=== PATIENT | male | born 1955 | race Caucasian/White ===

== ENCOUNTER → 2019-08-17 12:10 | Outpatient (BNVA) | payer MEDICARE, SELFPAY | PROVIDERS: Family Provider Family Medicine; PCP Family Medicine; Visit Provider Family Medicine | DX: Z00.00 Encounter for general adult medical examination without abnormal findings (principal); E11.9 Type 2 diabetes mellitus without complications | CPT/HCPCS: 80053; 80061; 82044; 83036; 85007; 85027 ==

== ENCOUNTER → 2020-06-27 11:38 | Outpatient (BNVA) | payer MEDICARE, SELFPAY | PROVIDERS: Family Provider Family Medicine; PCP Family Medicine; Visit Provider Family Medicine | DX: I10 Essential (primary) hypertension (principal); E11.42 Type 2 diabetes mellitus with diabetic polyneuropathy; E78.5 Hyperlipidemia, unspecified; E55.9 Vitamin D deficiency, unspecified; N43.3 Hydrocele, unspecified | CPT/HCPCS: 80053; 80061; 81003; 82043; 83036; 85007; 85027 ==

== ENCOUNTER → 2021-11-11 13:31 | Outpatient (BNVA) | payer MEDICARE, SELFPAY | PROVIDERS: Family Provider Family Medicine; PCP Family Medicine; Visit Provider Nurse Practitioner | DX: E11.9 Type 2 diabetes mellitus without complications (principal); N40.0 Benign prostatic hyperplasia without lower urinary tract symptoms; R53.83 Other fatigue | CPT/HCPCS: 80053; 80061; 82043; 83036; 84550; 85025; G0103 ==

== ENCOUNTER → 2022-07-19 08:33 | Outpatient (BNVA) | payer MEDICARE, SELFPAY | PROVIDERS: Family Provider Family Medicine; PCP Family Medicine; Visit Provider Family Medicine | DX: E78.5 Hyperlipidemia, unspecified (principal); I10 Essential (primary) hypertension; E11.9 Type 2 diabetes mellitus without complications | CPT/HCPCS: 80053; 80061; 83036; 84443; 85025 ==

== ENCOUNTER → 2023-03-09 15:41 | Outpatient (BNVA) | payer MEDICARE, SELFPAY | PROVIDERS: Family Provider Family Medicine; PCP Family Medicine; Visit Provider Nurse Practitioner Family | DX: E11.9 Type 2 diabetes mellitus without complications (principal) | CPT/HCPCS: 83036 ==

== ENCOUNTER → 2023-04-28 09:30 | Outpatient (BNVA) | payer MEDICARE, SELFPAY | PROVIDERS: Family Provider Family Medicine; PCP Family Medicine; Visit Provider Nurse Practitioner Family | DX: E11.40 Type 2 diabetes mellitus with diabetic neuropathy, unspecified (principal); N40.0 Benign prostatic hyperplasia without lower urinary tract symptoms; Z12.5 Encounter for screening for malignant neoplasm of prostate; E78.5 Hyperlipidemia, unspecified; I10 Essential (primary) hypertension; I25.10 Atherosclerotic heart disease of native coronary artery without angina pectoris | CPT/HCPCS: 80053; 81000; 83036; 85025; G0103 ==

== ENCOUNTER → 2023-04-29 09:20 | Outpatient (BNVA) | payer MEDICARE, SELFPAY | PROVIDERS: Family Provider Family Medicine; PCP Family Medicine; Visit Provider Podiatrist Foot & Ankle Surgery | DX: B35.1 Tinea unguium (principal); B35.3 Tinea pedis; E11.42 Type 2 diabetes mellitus with diabetic polyneuropathy; M20.41 Other hammer toe(s) (acquired), right foot; M20.42 Other hammer toe(s) (acquired), left foot; I73.9 Peripheral vascular disease, unspecified; L84 Corns and callosities; M21.612 Bunion of left foot; M21.611 Bunion of right foot; M21.6X2 Other acquired deformities of left foot; M21.6X1 Other acquired deformities of right foot; Z79.84 Long term (current) use of oral hypoglycemic drugs | CPT/HCPCS: 11721; 99213 ==

== ENCOUNTER → 2023-12-27 08:39 | Outpatient (BNVA) | payer MEDICARE, SELFPAY | PROVIDERS: Family Provider Family Medicine; PCP Nurse Practitioner Family; Visit Provider Nurse Practitioner Family | DX: E11.9 Type 2 diabetes mellitus without complications (principal) | CPT/HCPCS: 80053; 83036; 85025 ==

== ENCOUNTER → 2024-05-21 08:41 | Outpatient (BNVA) | payer MEDICARE, SELFPAY | PROVIDERS: Family Provider Family Medicine; PCP Nurse Practitioner Family; Visit Provider Nurse Practitioner Family | DX: Z12.5 Encounter for screening for malignant neoplasm of prostate (principal); I10 Essential (primary) hypertension; E78.5 Hyperlipidemia, unspecified; E55.9 Vitamin D deficiency, unspecified; R60.0 Localized edema; E11.40 Type 2 diabetes mellitus with diabetic neuropathy, unspecified | CPT/HCPCS: 80053; 80061; 81003; 82306; 83036; 84443; 85025; G0103 ==

== ENCOUNTER → 2024-10-08 11:18 | Outpatient (BNVA) | payer MEDICARE, SELFPAY | PROVIDERS: Family Provider Family Medicine; PCP Nurse Practitioner Family; Visit Provider Nurse Practitioner Family | DX: E11.9 Type 2 diabetes mellitus without complications (principal); E11.40 Type 2 diabetes mellitus with diabetic neuropathy, unspecified | CPT/HCPCS: 80053; 83036; 85025 ==

== ENCOUNTER 2024-10-18 15:58 | Outpatient (CLI) | payer MEDICARE, SELFPAY ==
--- NOTE | 2024-10-18 16:06 | XRR_ITS ---
PROCEDURE INFORMATION: Exam: XR Bilateral Hips Exam date and time: 10/18/2024 4:14 PM Age: 69 years old Clinical indication: Hip pain; Bilateral; Additional info: M25.552 - pain in left hip TECHNIQUE: Imaging protocol: Radiologic exam of the bilateral hips. Views: 2 views of hips with pelvis when performed. COMPARISON: CR XR lumbar spine 2-3V* [id number] 10/18/2024 4:14 PM FINDINGS: Bones/joints: Mild degenerative changes involve the bilateral hips and sacroiliac joints. No acute fracture. Soft tissues: Unremarkable. XR/XR hip BI m 5V wo/w pel* [id number] IMPRESSION: No acute findings. Mild degenerative changes
--- NOTE | 2024-10-18 16:06 | XRR_ITS ---
PROCEDURE INFORMATION: Exam: XR Lumbosacral Spine Exam date and time: 10/18/2024 4:14 PM Age: 69 years old Clinical indication: Pain; Lumbago with sciatica; Right; Additional info: M54.41 - lumbago with sciatica, right side TECHNIQUE: Imaging protocol: Radiologic exam of the lumbosacral spine. Views: 2 or 3 views. COMPARISON: CR XR hip BI m 5V wo/w pel* [id number] 10/18/2024 4:14 PM FINDINGS: Bones/joints: There is normal alignment of the lumbar spine without fracture or acute subluxation. Extensive facet arthropathy present. Anterior and marginal osteophyte formation present throughout the lumbar spine. There is grade 1 anterolisthesis of L3 in respect to L4 secondary to facet arthropathy Soft tissues: Unremarkable. XR/XR lumbar spine 2-3V* [id number] IMPRESSION: No acute bony abnormality. Multilevel degenerative changes.
== END 2024-10-18 15:59 | disposition home or self-care (01) ==
LOC: RAD 16:03
PROVIDERS: Absent Provider Family Medicine; PCP Nurse Practitioner Family; Visit Provider Nurse Practitioner Family
DX: M16.0 Bilateral primary osteoarthritis of hip (principal); M54.41 Lumbago with sciatica, right side; M54.42 Lumbago with sciatica, left side; G89.29 Other chronic pain; M47.896 Other spondylosis, lumbar region; M25.78 Osteophyte, vertebrae; M43.16 Spondylolisthesis, lumbar region; M46.1 Sacroiliitis, not elsewhere classified
CPT/HCPCS: 72100; 73523

== ENCOUNTER 2024-11-06 16:46 | Outpatient (CLI) | payer MEDICARE, SELFPAY ==
--- NOTE | 2024-11-06 16:45 | MR_ITS ---
WS: [id number] MRI LUMBAR SPINE NONCONTRAST TECHNIQUE: Sagittal T1, T2 and STIR imaging. Axial T1 and T2 imaging. CLINICAL INFORMATION: M54.30 - Sciatica, unspecified side COMPARISON: None. FINDINGS: Mild lumbar curve. Disc bulging worse at L1-2 L3-4 L4-5. Slight anterolisthesis L3 on L4 with chronic spondylolysis. LEFT synovial cyst L2-3 measuring 6 mm impinges the LEFT subarticular recess. L1-L2: Mild disc bulging with moderate central canal stenosis. Narrowing of the subarticular recess. Moderate facet arthropathy. Mild bilateral foraminal narrowing. L2-L3: Mild disc bulge with moderate central canal stenosis. LEFT synovial cyst contributes to significant impingement on the LEFT subarticular recess. Moderate facet arthropathy. Mild LEFT foraminal narrowing. L3-L4: Chronic spondylolysis with grade 1 anterolisthesis. Severe LEFT foraminal narrowing. Significant impingement on the exiting LEFT L3 nerve root. Mild RIGHT foraminal narrowing. Mild central canal stenosis. Impingement on the subarticular recess. Moderate facet arthropathy. L4-L5: Severe central canal stenosis due to disc bulging with facet arthropathy and ligamentum flavum hypertrophy. Severe impingement on the subarticular recess and traversing L5 nerve roots. Moderate facet arthropathy ligamentum flavum hypertrophy. Moderate to severe RIGHT and mild LEFT foraminal narrowing. L5-S1: Mild annular bulging. Tiny central protrusion. Slight contact of the S1 nerve roots RIGHT greater than LEFT. Mild RIGHT foraminal narrowing. Visualized pelvic bony structures: Normal. Paravertebral soft tissues: Normal. Tiny central protrusions in the cervical spine on examiner rating clerk imaging with mild central canal stenosis worse at C3-4. MR/MR lumbar spine wo con* [id number] IMPRESSION: 1. Severe central canal stenosis L4-5. 2. Moderate to severe foraminal narrowing LEFT L3-4 and RIGHT L4-5. 3. Moderate central canal stenosis L1-2 and L2-3. 4. Chronic spondylolysis L3-4 with grade 1 anterolisthesis 5. LEFT synovial cyst L2-3 measuring 6 mm impinges the LEFT subarticular rece ss.
== END 2024-11-06 16:47 | disposition home or self-care (01) ==
LOC: RAD 16:48
PROVIDERS: PCP Nurse Practitioner Family; Visit Provider Nurse Practitioner Family
DX: M54.41 Lumbago with sciatica, right side (principal); M54.42 Lumbago with sciatica, left side; M16.12 Unilateral primary osteoarthritis, left hip; G89.29 Other chronic pain; M48.061 Spinal stenosis, lumbar region without neurogenic claudication; M47.896 Other spondylosis, lumbar region; M71.38 Other bursal cyst, other site; R93.7 Abnormal findings on diagnostic imaging of other parts of musculoskeletal system; M43.8X6 Other specified deforming dorsopathies, lumbar region; M51.369 Other intervertebral disc degeneration, lumbar region without mention of lumbar back pain or lower extremity pain; M43.06 Spondylolysis, lumbar region; M89.38 Hypertrophy of bone, other site; M51.379 Other intervertebral disc degeneration, lumbosacral region without mention of lumbar back pain or lower extremity pain
CPT/HCPCS: 72148

== ENCOUNTER 2024-12-19 10:17 | Outpatient (CLI) | payer MEDICARE, SELFPAY ==
--- NOTE | 2024-12-19 10:30 | USR_ITS ---
PROCEDURE INFORMATION: Exam: US Bilateral Noninvasive Physiologic Study of the Lower Extremity Arteries, Limited Exam date and time: 12/19/2024 10:29 AM Age: 69 years old Clinical indication: Pain; Leg, lower; Bilateral; Additional info: I73.9 - peripheral vascular disease, unspecified TECHNIQUE: Imaging protocol: Bilateral Limited bilateral noninvasive physiologic studies of lower extremity arteries. Waveforms were obtained and evaluated. Images were documented and archived. Exam is limited. COMPARISON: No relevant prior studies available. FINDINGS: Right Ankle-Brachial Index: 1.1 Left Ankle-Brachial Index: 1.1 US/CV ankle brachial index [id number] IMPRESSION: No evidence of stenosis or occlusion in the lower extremity.
== END 2024-12-19 10:18 | disposition home or self-care (01) ==
PROVIDERS: PCP Nurse Practitioner Family; Visit Provider Family Medicine
DX: I73.9 Peripheral vascular disease, unspecified (principal)
CPT/HCPCS: 93922

== ENCOUNTER → 2024-12-25 13:55 | Outpatient (BNVA) | payer MEDICARE, SELFPAY | PROVIDERS: PCP Nurse Practitioner Family; Visit Provider Orthopaedic Surgery | DX: M54.41 Lumbago with sciatica, right side (principal); M54.42 Lumbago with sciatica, left side; G89.29 Other chronic pain | CPT/HCPCS: 72110; 99203 ==

== ENCOUNTER → 2025-01-04 11:16 | Outpatient (BNVA) | payer MEDICARE, SELFPAY | PROVIDERS: PCP Family Medicine; Referring Provider Orthopaedic Surgery; Visit Provider Nurse Practitioner Family | DX: M54.16 Radiculopathy, lumbar region (principal); G89.29 Other chronic pain; M47.816 Spondylosis without myelopathy or radiculopathy, lumbar region | CPT/HCPCS: 99214 ==

== ENCOUNTER 2025-01-06 05:00 | Outpatient (RCR) | payer MEDICARE, SELFPAY | END 2025-02-04 23:59 | disposition home or self-care (01) | LOC: WPT 05:00 | PROVIDERS: PCP Family Medicine; Visit Provider Orthopaedic Surgery | DX: M79.18 Myalgia, other site (principal); M54.16 Radiculopathy, lumbar region; G89.29 Other chronic pain; M47.816 Spondylosis without myelopathy or radiculopathy, lumbar region | CPT/HCPCS: 20553; 97110; 97112; 97161; 97530; 99214; J1010; J3490 ==

== ENCOUNTER → 2025-01-22 14:32 | Outpatient (BNVA) | payer MEDICARE, SELFPAY | PROVIDERS: PCP Family Medicine; Visit Provider Nurse Practitioner Family | DX: M54.16 Radiculopathy, lumbar region (principal); G89.29 Other chronic pain; M47.816 Spondylosis without myelopathy or radiculopathy, lumbar region | CPT/HCPCS: 99214 ==

== ENCOUNTER 2025-02-05 05:00 | Outpatient (RCR) | payer MEDICARE, SELFPAY | END 2025-03-07 23:59 | disposition home or self-care (01) | LOC: WPT 05:00 | PROVIDERS: PCP Family Medicine; Visit Provider Orthopaedic Surgery | DX: M54.50 Low back pain, unspecified (principal); M79.18 Myalgia, other site; G89.29 Other chronic pain; M54.16 Radiculopathy, lumbar region; M47.816 Spondylosis without myelopathy or radiculopathy, lumbar region | CPT/HCPCS: 97110; 97112; 97530 ==

== ENCOUNTER → 2025-02-20 14:24 | Outpatient (BNVA) | payer MEDICARE, SELFPAY | PROVIDERS: PCP Family Medicine; Visit Provider Nurse Practitioner Family | DX: M54.16 Radiculopathy, lumbar region (principal); M47.816 Spondylosis without myelopathy or radiculopathy, lumbar region; G89.29 Other chronic pain | CPT/HCPCS: 99214 ==

== ENCOUNTER → 2025-05-14 13:46 | Outpatient (BNVA) | payer MEDICARE, SELFPAY | PROVIDERS: PCP Family Medicine; Visit Provider Family Medicine | DX: I25.10 Atherosclerotic heart disease of native coronary artery without angina pectoris (principal); E11.40 Type 2 diabetes mellitus with diabetic neuropathy, unspecified; I10 Essential (primary) hypertension | CPT/HCPCS: 83036; 85025 ==

== ENCOUNTER 2025-06-14 19:29 | Emergency (ER) | payer MEDICARE, SELFPAY ==
[2025-06-14 19:32] VITALS: BP 105/62; PULSE 69; RESP 18; TEMP 36.7; O2SAT 99
--- NOTE | 2025-06-14 19:41 | ECG_ITS ---
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 Measurements Intervals [place] Rate: 67 P: 35 UT: 181 QRS: -8 QRSD: 94 T: 29 QT: 381 QTc: 402 Interpretive Statements SINUS RHYTHM POSSIBLE ANTERIOR MYOCARDIAL INFARCTION , PROBABLY OLD [30 ms Q WAVE IN V3/V4, OR R < 0.2 mV IN V4] INFERIOR MYOCARDIAL INFARCTION , PROBABLY OLD [40+ ms Q WAVE AND/OR ST/T ABNORMALITY IN II/aVF] Compared to ECG 05/20/2017 14:46:31 Sinus bradycardia no longer present Myocardial infarct finding still present Electronically Signed On 06-15-2025 08:30:51 PHOTOGRAPH PRINTER by Pravin Greenberg M.D. [id number]
--- NOTE | 2025-06-14 20:54 | XRR_ITS ---
PROCEDURE INFORMATION: Exam: XR Chest Exam date and time: 06/14/2025 9:12 PM Age: 70 years old Clinical indication: Shortness of breath; Prior surgery; Surgery date: 6+ months; Surgery type: Coronary stents; C/O SOB TECHNIQUE: Imaging protocol: Radiologic exam of the chest. Views: 1 view. COMPARISON: l spine FINDINGS: Lungs: Patchy density in the retrocardiac region indicating left lower lobe atelectasis versus early infection. Multiple calcified granulomas in the left lung. Pleural spaces: Small left pleural effusion. Heart/Mediastinum: There is no cardiomegaly. Bones/joints: No acute osseous abnormality. Intraperitoneal space: There is no free intraperitoneal gas. XR/XR chest 1V portable [id number] IMPRESSION: No acute findings.
[2025-06-14 21:15] LABS: Hematocrit 39.7 % (37-53); Hemoglobin 13.30 g/dL (11.27-16.99); Mean Corpuscular HGB Conc 33.5 g/dL (30-55); Mean Corpuscular Hemoglobin 29.2 pg (27-33); Mean Corpuscular Volume 87.1 fl (82-101); Nucleated Red Blood Cells % 0 %; Platelet Count 175 10^3/cmm (157-399); Red Blood Count 4.56 10^6/uL (3.85-5.65); White Blood Count 10.18 10^3/uL (3.29-11.43)
[2025-06-14 21:37] LABS: Alanine Aminotransferase 130 U/L (0-41); Albumin Level 3.2 g/dL (3.5-5.2); Alkaline Phosphatase 167 U/L (40-130); Anion Gap 16.5 (5-19); Aspartate Amino Transferase 99 U/L (0-40); Blood Urea Nitrogen 33 mg/dL (8-23); Calcium 9.6 mg/dL (8.5-10.5); Carbon Dioxide 26 mmol/L (22-29); Chloride 97 mmol/L (98-107); Creatinine Clr Calc Pharmacy 55.0641; Globulin 3.5 g/dL (1.3-4.6); Glucose 207 mg/dL (65-115); Osmolality Calculated 295 mOsm/kg (285-295); Potassium 3.5 mmol/L (3.5-5.1); Sodium 136 mmol/L (136-145); Total Protein 6.7 g/dL (6.6-8.7)
[2025-06-14 21:40] LABS: Troponin(5th) Baseline 49 ng/L (0-15)
[2025-06-14 21:47] VITALS: BP 136/69; PULSE 66; O2SAT 92
--- NOTE | 2025-06-14 21:51 | CTR_ITS ---
PROCEDURE INFORMATION: Exam: CTA Chest With Contrast Exam date and time: 06/14/2025 10:58 PM Age: 70 years old Clinical indication: Pain and abnormal findings; Abnormal diagnostic tests; Elevated d-dimer; Left-sided; Prior surgery; Surgery date: 6+ months; Surgery type: Coronary stents; Patient C/O left sided chest pain. Dimer of 6.19. Patient one week post op from lumbar surgery. ; Additional info: Elevated dimer, cp TECHNIQUE: Imaging protocol: Computed tomographic angiography of the chest with contrast. Exam focused on the arteries. 3D rendering (Not supervised by radiologist): MIP and/or 3D reconstructed images were created by the technologist. Radiation optimization: All CT scans at this facility use at least one of these dose optimization techniques: automated exposure control; mA and/or kV adjustment per patient size (includes targeted exams where dose is matched to clinical indication); or iterative reconstruction. Contrast material: OMNI 350; Contrast volume: 72 ml; Contrast route: INTRAVENOUS (IV); COMPARISON: CR (CHEST, ) 06/14/2025 9:12 PM RADIATION DOSE METRICS: Total DLP (mGy-cm): 515.09 FINDINGS: Pulmonary arteries: Large volume pulmonary emboli in the right upper lobe, right lower and right middle lobe branches. Extensive thrombus in the left lower lobe pulmonary artery branch and minimal thrombus in the left upper lobes. Aorta: There is no aortic aneurysm. Celiac and mesenteric arteries: Limited evaluation of the upper abdomen demonstrates diseased but patent origin of the celiac. Lungs: Patchy ground-glass opacification in the left lower lobe and left upper lobe. Calcified granulomas in both lungs predominantly on the left. Pleural spaces: Trace left pleural effusion. There is no pneumothorax. Heart: There is no cardiomegaly. There is no pericardial effusion. Heart RV/LV ratio: The RV/LV ratio is 1.01. Coronary arteries: Moderate coronary arterial calcification, indicating the presence of coronary artery disease. Esophagus: There is thickening of the wall of the esophagus indicating reflux. Lymph nodes: No pathologically enlarged lymph nodes (by short axis size criteria). Bones/joints: No acute osseous abnormality. There is degenerative disease of the spine. Soft tissues: Unremarkable. CT/CT angio chest PE protcl [id number] IMPRESSION: 1. Extensive pulmonary emboli in all the lobes. The largest clot burden is in the left interlobar and lower lobe pulmonary arterial branches. Evidence of right heart strain. Patchy density in the right lower lobe is likely due to pulmonary infarction as the lower lobe branch is occluded. The involved proximal branch on the left is the left interlobar branch and on the right are the right upper lobe, and right lower lobe branches 2. Moderate coronary arterial calcification, indicating the presence of coronary artery disease. If the patient has associated symptoms recommend management as per chest pain guidelines. If the patient is asymptomatic consider reviewing modifiable cardiovascular risk factors and managing as per guidelines for primary prevention
--- NOTE | 2025-06-14 22:23 | W.ED.GENADLT ---
Documented by User: CHICHO Herring 06/15/25 01:46 HPI - General Adult General: Chief complaint: General Medical Stated complaint: post surg, front abd left side pain. urg care sent Time Seen by Provider: 06/14/25 20:53 Source: patient Mode of arrival: ambulatory Limitations: no limitations History of Present Illness: Patient is a 70-year-old male presenting to the emergency department with left lower chest pain beginning for the past few days. Patient had back surgery a week ago, states that he has been doing well with ambulation and pain up until the past couple of days with the onset of chest pain where he has also felt weak and short of breath. He initially went to urgent care, was sent here due to concerns for blood clot as he has been off of his anticoagulants for greater than a week. He does not report any fevers at home. Also reportedly had a chest x-ray urgent care that showed concerns of a pneumonia. His vitals are stable at this time he is oxygenating well on room air. No other pertinent past medical history other than cardiac stents, he states that the pain is worse with deep breaths. He notes that overall the pain in his back is much improved, and he has remained ambulatory just is reporting no weakness. No loss of bowel or bladder function, no saddle anesthesia. MD complaint: Chest pain, shortness of breath, weakness, recent back surgery Onset (ago): day(s) Associated symptoms: Reports chest pain and dyspnea; Deny headache(s), nausea, rash, palpitations or vomiting Related Data Home Medications ?Medication ?Instructions ?Recorded ?Confirmed aspirin 81 mg tablet,delayed 81 mg PO DAILY 07/26/22 05/08/25 release coenzyme Q10 100 mg capsule 100 mg PO DAILY 07/26/22 05/08/25 (CoQ-10) nitroglycerin 0.4 mg sublingual 0.4 mg sublingual Q5M PRN 07/26/22 05/08/25 tablet cholecalciferol (vitamin D3) 125 125 mcg PO DAILY 06/12/24 05/08/25 mcg (5,000 unit) capsule Previous Rx's ?Medication ?Instructions ?Recorded blood sugar diagnostic (OneTouch #50 ea 10/27/20 Verio test strips) blood-glucose meter #1 ea 09/21/23 lancets (Accu-Chek Softclix #200 ea 09/21/23 Lancets) diabetic shoes/custom inserts #1 ea 11/24/23 tamsulosin 0.4 mg capsule (Flomax) 0.4 mg PO BID 90 days #180 caps 07/10/24 diabetic shoes and custom inserts #1 ea 10/19/24 potassium chloride 20 mEq See Rx Instructions .Route 11/26/24 tablet,extended .COMPLEX #90 tabs release(part/cryst) (Klor-Con M) metformin 1,000 mg tablet See Rx Instructions .Route 11/29/24 .COMPLEX #180 tabs blood sugar diagnostic (Accu-Chek #100 ea 01/14/25 Guide test strips) empagliflozin 10 mg tablet See Rx Instructions .Route 01/16/25 (Jardiance) .COMPLEX #30 tabs cyclobenzaprine 10 mg tablet 10 mg PO TID PRN muscle spasm #90 02/20/25 tabs doxycycline hyclate 100 mg tablet 100 mg PO DAILY #90 tabs 03/13/25 clopidogrel 75 mg tablet See Rx Instructions .Route 03/19/25 .COMPLEX #90 tabs finasteride 5 mg tablet See Rx Instructions .Route 03/29/25 .COMPLEX #90 tabs losartan 50 mg tablet See Rx Instructions .Route 03/29/25 .COMPLEX #135 tabs carvedilol 12.5 mg tablet See Rx Instructions .Route 04/09/25 .COMPLEX #180 tabs chlorthalidone 25 mg tablet 25 mg PO DAILY #90 tabs 04/09/25 hydrochlorothiazide 12.5 mg tablet See Rx Instructions .Route 04/09/25 .COMPLEX #90 tabs blood-glucose sensor (FreeStyle #1 ea 04/16/25 Dayana 3 Sensor device) allopurinol 300 mg tablet See Rx Instructions .Route 04/17/25 .COMPLEX #90 tabs blood-glucose,literature teacher,cont #1 ea 05/13/25 (FreeStyle Dayana 3 [place]) atorvastatin 80 mg tablet See Rx Instructions .Route 05/27/25 .COMPLEX #45 tabs gabapentin 300 mg capsule See Rx Instructions .Route 06/03/25 .COMPLEX #60 caps glipizide 10 mg tablet 5 mg (1/2 x 10 mg) PO BID #180 tabs 06/04/25 Allergies Allergy/AdvReac Type Severity Reaction Status Date / Time No Known Allergies Allergy Verified 05/08/25 11:06 Review of Systems General: Reports: 10 or more systems reviewed and unremarkable except in HPI and below Const: Denies: fever(s), chills or fatigue Eyes: Denies: change in vision ENMT: Denies: throat pain, ear or mastoid pain or nasal discharge Card: Reports: chest pain; Denies: palpitations, swelling of feet/ankles or lightheadedness Resp: Reports: dyspnea and pain on inspiration; Denies: productive cough, wheezing or hemoptysis GI: Denies: abdominal pain, nausea, vomiting, diarrhea or constipation : Denies: flank pain, difficulty urinating, dysuria or urinary frequency Musc: Reports: muscle weakness; Denies: neck pain, back pain or joint pain Skin/Breast: Denies: rash Neuro: Denies: headache(s), numbness in extremities or weakness in extremities PFSH ED PFSH: Medical History Lower respiratory infection Osteoarthritis Chronic left hip pain Enrolled in chronic care management please do not remove from active Rosacea Hydrocele Vitamin D deficiency Hypertension Diabetes mellitus Sinusitis, bacterial Surgical History History of shoulder surgery Family History Other CAD (coronary artery disease) Diabetes Hyperlipidemia Hypertension Stroke Denies family history of Clotting disorder Dementia Psychiatric illness Chronic kidney disease (CKD) Suicide Anesthesia complication Bleeding disorder Family history of premature coronary artery disease Lung disease Social History Smoking and tobacco/nicotine status: former use of tobacco/nicotine Second hand smoke exposure: No Alcohol intake: never Adopted: No Household members: spouse Physical Exam Const: COMMON NORMALS: no acute distress, patient oriented x3 and no limitations GENERAL APPEARANCE: cooperative, comfortable and well developed ORIENTATION/CONSCIOUSNESS: Yes awake, Yes oriented to person, Yes oriented to place and Yes oriented to time HENMT: COMMON NORMALS: normocephalic, atraumatic and hearing grossly normal bilaterally HEAD & SCALP: normocephalic and atraumatic Eye: COMMON NORMALS: Equal, round and reactive pupils present, EOMs intact bilaterally and conjunctivae normal CONJUNCTIVA: Yes conjunctivae normal PUPIL: Yes Equal, round and reactive pupils present Neck/C-Spine: COMMON NORMALS: full ROM, supple and no JVD Chest: OTHER: Mild reproducible tenderness to palpation to the chest wall Resp: COMMON NORMALS: normal respiratory effort, No retractions, No use of accessory muscles and clear to auscultation bilaterally AUSCULTATION: clear to auscultation bilaterally Cardio: COMMON NORMALS: no JVD, regular rate, regular rhythm, No clicks present (Cardio), No murmurs present (Cardio) and No rub (Cardio) RATE: regular rate RHYTHM: regular rhythm GI: COMMON NORMALS: Normal to inspection, nondistended, normoactive bowel sounds present, Soft to palpation and non-tender AUSCULTATION: Yes normoactive bowel sounds PALPATION: Yes Soft to palpation RECTAL EXAM: Yes deferred Back/Pelvis: COMMON NORMALS: no thoracic nor lumbar tenderness and thoraco-lumbar ROM normal OTHER: Dressing to lower back, no cellulitic changes, nontender to palpation, full range of motion at the back Extremity: COMMON NORMALS: normal to inspection, full ROM and capillary refill normal Neuro: COMMON NORMALS: patient oriented x3, moves all extremities, no focal motor deficits and no sensory deficits noted SENSORIUM/ORIENTATION: Yes oriented to person, Yes oriented to place and Yes oriented to time Skin: COMMON NORMALS: no rashes or lesions noted GENERAL SKIN EXAM: no rashes or lesions noted Course Vital Signs: Vital signs: Vital Signs Temperature 98.1 F 06/14/25 19:32 Pulse Rate 63 06/15/25 01:26 Respiratory Rate 18 06/14/25 19:32 Blood Pressure 134/73 06/15/25 01:26 Pulse Oximetry 92 06/15/25 01:26 Oxygen Delivery Me thod Room Air 06/15/25 01:26 [facility] - General Adult Medical Decision Making This patient presented for left sided chest pain, he noted to me that he had been seen previously urgent care had x-ray and labs, there was concern of him having leukocytosis and pneumonia chest x-ray. On exam there is some reproducible tenderness palpation of left anterior chest wall, however heart and lung sounds are unremarkable. His vitals have been stable here specifically his blood pressure and he has been oxygenating well on room air 93 to 97%. Of note this patient recently had a back surgery a week ago, and prior to that had his Plavix stopped for preoperative purposes. He has since yet to resume the blood thinner. The procedure was performed at [facility], evaluation of the low back on exam did not reveal any acute abnormalities in the sense. He had no red flag symptoms in regards to his back either such as bowel or bladder incontinence or saddle anesthesia. EKG ordered showing sinus rhythm, rate [address] segment changes. Chest x-ray here negative, his CBC does not reveal any leukocytosis. Creatinine 1.5, troponin 49 with negative delta troponin, however most notably D-dimer of 6.19. Because of this CTA ordered, revealing extensive pulmonary embolus in all lungs with mild right heart strain and evidence of right lower pulmonary infarction. I spoke to Dr. Lujan, hospitalist here, recommending transfer for potential mechanical thrombectomy due to his postoperative status, patient started on heparin at this time. I spoke to IR at [facility], agreed to consult the patient once accepted to program manager services. Dr. Keene is accepting physician, currently awaiting bed assignment at this time. Informed patient and family this plan, they agree and all other questions and concerns addressed. Heparin drip active at this time. Dr. Villalobos informed of this patient's case and current findings. Lab Data 06/14/25 21:10 06/14/25 21:10 Radiology Impressions Chest X-Ray 06/14/25 20:54 IMPRESSION: No acute findings. Chest CTA 06/14/25 21:51 IMPRESSION: 1. Extensive pulmonary emboli in all the lobes. The largest clot burden is in the left interlobar and lower lobe pulmonary arterial branches. Evidence of right heart strain. Patchy density in the right lower lobe is likely due to pulmonary infarction as the lower lobe branch is occluded. The involved proximal branch on the left is the left interlobar branch and on the right are the right upper lobe, and right lower lobe branches 2. Moderate coronary arterial calcification, indicating the presence of coronary artery disease. If the patient has associated symptoms recommend management as per chest pain guidelines. If the patient is asymptomatic consider reviewing modifiable cardiovascular risk factors and managing as per guidelines for primary prevention ADDENDUM: 06/14/25 9928 THIS REPORT CONTAINS FINDINGS THAT MAY BE CRITICAL TO PATIENT CARE. The findings were verbally communicated via telephone conference with CHICHO Marie at 11:26 PM PACK ROOM OPERATOR on 06/14/2025. The findings were acknowledged and understood. Laboratory Results WBC 10.18 10^3/uL (3.29-11.43) 06/14/25 21:10 RBC 4.56 10^6/uL (3.85-5.65) 06/14/25 21:10 Hgb 13.30 g/dL (11.27-16.99) 06/14/25 21:10 Hct 39.7 % (37-53) 06/14/25 21:10 MCV 87.1 fl (82-101) 06/14/25 21:10 MCH 29.2 pg (27-33) 06/14/25 21:10 MCHC 33.5 g/dL (30-55) 06/14/25 21:10 RDW 15.9 % (12.1-15.1) H 06/14/25 21:10 Plt Count 175 10^3/cmm (157-399) 06/14/25 21:10 MPV 9.3 fL (7.4-10.4) 06/14/25 21:10 Neut % (Auto) 75.0 % 06/14/25 21:10 Lymph % (Auto) 13.3 % 06/14/25 21:10 Izard % (Auto) 10.2 % 06/14/25 21:10 Eos % (Auto) 0.3 % 06/14/25 21:10 Baso % (Auto) 0.4 % 06/14/25 21:10 Neut # (Auto) 7.64 10^3/uL (1.8-7.7) 06/14/25 21:10 Lymph # (Auto) 1.4 10^3/uL (0.8-4.8) 06/14/25 21:10 Izard # (Auto) 1.0 10^3/uL (0.2-0.9) H 06/14/25 21:10 Eos # (Auto) 0.0 10^3/uL (0.0-0.8) 06/14/25 21:10 Baso # (Auto) 0.0 10^3/uL (0.0-0.1) 06/14/25 21:10 Nucleated RBC % (auto) 0 % 06/14/25 21:10 Nucleated RBCs # 0.0 /100WBC 06/14/25 21:10 PT 15.50 SECONDS (12.1-14.9) H 06/14/25 21:10 INR 1.14 (0.8-1.2) 06/14/25 21:10 APTT 34.0 SECONDS (23.9-36.7) 06/14/25 21:10 D-Dimer 6.19 ug/mLFEU (0-0.59) H 06/14/25 21:10 Sodium 136 mmol/L (136-145) 06/14/25 21:10 Potassium 3.5 mmol/L (3.5-5.1) 06/14/25 21:10 Chloride 97 mmol/L (98-107) L 06/14/25 21:10 Carbon Dioxide 26 mmol/L (22-29) 06/14/25 21:10 Anion Gap 16.5 (5-19) 06/14/25 21:10 BUN 33 mg/dL (8-23) H 06/14/25 21:10 Creatinine 1.5 mg/dL (0.7-1.2) H 06/14/25 21:10 GFR Calculation Not Reportable 06/14/25 21:10 Glucose 207 mg/dL (65-115) H 06/14/25 21:10 Calculated Osmolality 295 mOsm/kg (285-295) 06/14/25 21:10 Calcium 9.6 mg/dL (8.5-10.5) 06/14/25 21:10 Total Bilirubin 2.1 mg/dL (0.15-1.2) H 06/14/25 21:10 AST 99 U/L (0-40) H 06/14/25 21:10 ALT 130 U/L (0-41) H 06/14/25 21:10 Alkaline Phosphatase 167 U/L (40-130) H 06/14/25 21:10 Troponin T Baseline 49 ng/L (0-15) H 06/14/25 21:10 Troponin T 120 Minute 47.34 ng/L (0-15) H 06/14/25 23:23 Delta Troponin T -1.66 ABS# (0-10) L 06/14/25 23:23 Total Protein 6.7 g/dL (6.6-8.7) 06/14/25 21:10 Albumin 3.2 g/dL (3.5-5.2) L 06/14/25 21:10 Globulin 3.5 g/dL (1.3-4.6) 06/14/25 21:10 All radiology interpretation(s) finalized by discharge Discharge Plan Discharge Patient Disposition: Xfer Short-Term Hosp Clinical Impression: Pulmonary embolism Qualifiers: Pulmonary embolism type: multiple subsegmental (without acute cor pulmonale) Qualified Code(s): I26.94 - Multiple subsegmental thrombotic pulmonary emboli without acute cor pulmonale Condition: Stable Referrals: Bravo Goodman MD [Primary Care Provider, Family Practice] Print Language: South African Coding Level of Care Code 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 urg care sent Time Seen by Provider: 06/14/25 20:53 Related Data Home Medications ?Medication ?Instructions ?Recorded ?Confirmed aspirin 81 mg tablet,delayed 81 mg PO DAILY 07/26/22 05/08/25 release coenzyme Q10 100 mg capsule 100 mg PO DAILY 07/26/22 05/08/25 (CoQ-10) nitroglycerin 0.4 mg sublingual 0.4 mg sublingual Q5M PRN 07/26/22 05/08/25 tablet cholecalciferol (vitamin D3) 125 125 mcg PO DAILY 06/12/24 05/08/25 mcg (5,000 unit) capsule Previous Rx's ?Medication ?Instructions ?Recorded blood sugar diagnostic (OneTouch #50 ea 10/27/20 Verio test strips) blood-glucose meter #1 ea 09/21/23 lancets (Accu-Chek Softclix #200 ea 09/21/23 Lancets) diabetic shoes/custom inserts #1 ea 11/24/23 tamsulosin 0.4 mg capsule (Flomax) 0.4 mg PO BID 90 days #180 caps 07/10/24 diabetic shoes and custom inserts #1 ea 10/19/24 potassium chloride 20 mEq See Rx Instructions .Route 11/26/24 tablet,extended .COMPLEX #90 tabs release(part/cryst) (Klor-Con M) metformin 1,000 mg tablet See Rx Instructions .Route 11/29/24 .COMPLEX #180 tabs blood sugar diagnostic (Accu-Chek #100 ea 01/14/25 Guide test strips) empagliflozin 10 mg tablet See Rx Instructions .Route 01/16/25 (Jardiance) .COMPLEX #30 tabs cyclobenzaprine 10 mg tablet 10 mg PO TID PRN muscle spasm #90 02/20/25 tabs doxycycline hyclate 100 mg tablet 100 mg PO DAILY #90 tabs 03/13/25 clopidogrel 75 mg tablet See Rx Instructions .Route 03/19/25 .COMPLEX #90 tabs finasteride 5 mg tablet See Rx Instructions .Route 03/29/25 .COMPLEX #90 tabs losartan 50 mg tablet See Rx Instructions .Route 03/29/25 .COMPLEX #135 tabs carvedilol 12.5 mg tablet See Rx Instructions .Route 04/09/25 .COMPLEX #180 tabs chlorthalidone 25 mg tablet 25 mg PO DAILY #90 tabs 04/09/25 hydrochlorothiazide 12.5 mg tablet See Rx Instructions .Route 04/09/25 .COMPLEX #90 tabs blood-glucose sensor (FreeStyle #1 ea 04/16/25 Dayana 3 Sensor device) allopurinol 300 mg tablet See Rx Instructions .Route 04/17/25 .COMPLEX #90 tabs blood-glucose,literature teacher,cont #1 ea 05/13/25 (FreeStyle Dayana 3 [place]) atorvastatin 80 mg tablet See Rx Instructions .Route 05/27/25 .COMPLEX #45 tabs gabapentin 300 mg capsule See Rx Instructions .Route 06/03/25 .COMPLEX #60 caps glipizide 10 mg tablet 5 mg (1/2 x 10 mg) PO BID #180 tabs 06/04/25 Allergies Allergy/AdvReac Type Severity Reaction Status Date / Time No Known Allergies Allergy Verified 05/08/25 11:06 [facility] ED PFSH: Medical History Lower respiratory infection Osteoarthritis Chronic left hip pain Enrolled in chronic care management please do not remove from active Rosacea Hydrocele Vitamin D deficiency Hypertension Diabetes mellitus Sinusitis, bacterial Surgical History History of shoulder surgery Family History Other CAD (coronary artery disease) Diabetes Hyperlipidemia Hypertension Stroke Denies family history of Clotting disorder Dementia Psychiatric illness Chronic kidney disease (CKD) Suicide Anesthesia complication Bleeding disorder Family history of premature coronary artery disease Lung disease Social History Smoking and tobacco/nicotine status: former use of tobacco/nicotine Second hand smoke exposure: No Alcohol intake: never Adopted: No Household members: spouse Course Vital Signs: Vital signs: Vital Signs Temperature 98.1 F 06/14/25 19:32 Pulse Rate 63 06/15/25 01:26 Respiratory Rate 18 06/14/25 19:32 Blood Pressure 134/73 06/15/25 01:26 Pulse Oximetry 92 06/15/25 01:26 Oxygen Delivery Me thod Room Air 06/15/25 01:26 [facility] - General Adult Medical Decision Making This patient presented for left sided chest pain, he noted to me that he had been seen previously urgent care had x-ray and labs, there was concern of him having leukocytosis and pneumonia chest x-ray. On exam there is some reproducible tenderness palpation of left anterior chest wall, however heart and lung sounds are unremarkable. His vitals have been stable here specifically his blood pressure and he has been oxygenating well on room air 93 to 97%. Of note this patient recently had a back surgery a week ago, and prior to that had his Plavix stopped for preoperative purposes. He has since yet to resume the blood thinner. The procedure was performed at [facility], evaluation of the low back on exam did not reveal any acute abnormalities in the sense. He had no red flag symptoms in regards to his back either such as bowel or bladder incontinence or saddle anesthesia. EKG ordered showing sinus rhythm, rate [address] segment changes. Chest x-ray here negative, his CBC does not reveal any leukocytosis. Creatinine 1.5, troponin 49 with negative delta troponin, however most notably D-dimer of 6.19. Because of this CTA ordered, revealing extensive pulmonary embolus in all lungs with mild right heart strain and evidence of right lower pulmonary infarction. I spoke to Dr. Lujan, hospitalist here, recommending transfer for potential mechanical thrombectomy due to his postoperative status, patient started on heparin at this time. I spoke to IR at [facility], agreed to consult the patient once accepted to program manager services. Dr. Keene is accepting physician, currently awaiting bed assignment at this time. Informed patient and family this plan, they agree and all other questions and concerns addressed. Heparin drip active at this time. Dr. Villalobos informed of this patient's case and current findings. Patient was originally seen by Mr. Alfonzo PA-C. I agree with his history, evaluation, and management as above. Patient will be transferred to [facility] for further management. He is stable for transfer at this point. Lab Data 06/14/25 21:10 06/14/25 21:10 Radiology Impressions Chest X-Ray 06/14/25 20:54 IMPRESSION: No acute findings. Chest CTA 06/14/25 21:51 IMPRESSION: 1. Extensive pulmonary emboli in all the lobes. The largest clot burden is in the left interlobar and lower lobe pulmonary arterial branches. Evidence of right heart strain. Patchy density in the right lower lobe is likely due to pulmonary infarction as the lower lobe branch is occluded. The involved proximal branch on the left is the left interlobar branch and on the right are the right upper lobe, and right lower lobe branches 2. Moderate coronary arterial calcification, indicating the presence of coronary artery disease. If the patient has associated symptoms recommend management as per chest pain guidelines. If the patient is asymptomatic consider reviewing modifiable cardiovascular risk factors and managing as per guidelines for primary prevention ADDENDUM: 06/14/25 2328 THIS REPORT CONTAINS FINDINGS THAT MAY BE CRITICAL TO PATIENT CARE. The findings were verbally communicated via telephone conference with CHICHO Marie at 11:26 PM PACK ROOM OPERATOR on 06/14/2025. The findings were acknowledged and understood. Laboratory Results WBC 10.18 10^3/uL (3.29-11.43) 06/14/25 21:10 RBC 4.56 10^6/uL (3.85-5.65) 06/14/25 21:10 Hgb 13.30 g/dL (11.27-16.99) 06/14/25 21:10 Hct 39.7 % (37-53) 06/14/25 21:10 MCV 87.1 fl (82-101) 06/14/25 21:10 MCH 29.2 pg (27-33) 06/14/25 21:10 MCHC 33.5 g/dL (30-55) 06/14/25 21:10 RDW 15.9 % (12.1-15.1) H 06/14/25 21:10 Plt Count 175 10^3/cmm (157-399) 06/14/25 21:10 MPV 9.3 fL (7.4-10.4) 06/14/25 21:10 Neut % (Auto) 75.0 % 06/14/25 21:10 Lymph % (Auto) 13.3 % 06/14/25 21:10 Izard % (Auto) 10.2 % 06/14/25 21:10 Eos % (Auto) 0.3 % 06/14/25 21:10 Baso % (Auto) 0.4 % 06/14/25 21:10 Neut # (Auto) 7.64 10^3/uL (1.8-7.7) 06/14/25 21:10 Lymph # (Auto) 1.4 10^3/uL (0.8-4.8) 06/14/25 21:10 Izard # (Auto) 1.0 10^3/uL (0.2-0.9) H 06/14/25 21:10 Eos # (Auto) 0.0 10^3/uL (0.0-0.8) 06/14/25 21:10 Baso # (Auto) 0.0 10^3/uL (0.0-0.1) 06/14/25 21:10 Nucleated RBC % (auto) 0 % 06/14/25 21:10 Nucleated RBCs # 0.0 /100WBC 06/14/25 21:10 PT 15.50 SECONDS (12.1-14.9) H 06/14/25 21:10 INR 1.14 (0.8-1.2) 06/14/25 21:10 APTT 34.0 SECONDS (23.9-36.7) 06/14/25 21:10 D-Dimer 6.19 ug/mLFEU (0-0.59) H 06/14/25 21:10 Sodium 136 mmol/L (136-145) 06/14/25 21:10 Potassium 3.5 mmol/L (3.5-5.1) 06/14/25 21:10 Chloride 97 mmol/L (98-107) L 06/14/25 21:10 Carbon Dioxide 26 mmol/L (22-29) 06/14/25 21:10 Anion Gap 16.5 (5-19) 06/14/25 21:10 BUN 33 mg/dL (8-23) H 06/14/25 21:10 Creatinine 1.5 mg/dL (0.7-1.2) H 06/14/25 21:10 GFR Calculation Not Reportable 06/14/25 21:10 Glucose 207 mg/dL (65-115) H 06/14/25 21:10 Calculated Osmolality 295 mOsm/kg (285-295) 06/14/25 21:10 Calcium 9.6 mg/dL (8.5-10.5) 06/14/25 21:10 Total Bilirubin 2.1 mg/dL (0.15-1.2) H 06/14/25 21:10 AST 99 U/L (0-40) H 06/14/25 21:10 ALT 130 U/L (0-41) H 06/14/25 21:10 Alkaline Phosphatase 167 U/L (40-130) H 06/14/25 21:10 Troponin T Baseline 49 ng/L (0-15) H 06/14/25 21:10 Troponin T 120 Minute 47.34 ng/L (0-15) H 06/14/25 23:23 Delta Troponin T -1.66 ABS# (0-10) L 06/14/25 23:23 Total Protein 6.7 g/dL (6.6-8.7) 06/14/25 21:10 Albumin 3.2 g/dL (3.5-5.2) L 06/14/25 21:10 Globulin 3.5 g/dL (1.3-4.6) 06/14/25 21:10 Discharge Plan Discharge Patient Disposition: Xfer Short-Term Hosp Clinical Impression: Pulmonary embolism Qualifiers: Pulmonary embolism type: multiple subsegmental (without acute cor pulmonale) Qualified Code(s): I26.94 - Multiple subsegmental thrombotic pulmonary emboli without acute cor pulmonale Condition: Stable Referrals: Bravo Goodman MD [Primary Care Provider, Family Practice] Print Language: South African Coding Level of Care Code 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
[2025-06-14 22:51] VITALS: BP 138/69
[2025-06-14] MEDS: iohexol 350 mg/mL 500 mL Btl (per mL) IV (23:01)
--- NOTE | 2025-06-14 23:08 | ECG_ITS ---
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 Measurements Intervals [place] Rate: 64 P: 36 [place]: 192 QRS: -17 QRSD: 96 T: 12 QT: 403 QTc: 419 Interpretive Statements SINUS RHYTHM WITH OCCASIONAL VENTRICULAR PREMATURE COMPLEXES LOW QRS VOLTAGE IN PRECORDIAL LEADS [QRS DEFLECTION < 1.0 mV IN CHEST LEADS] PATTERN CONSISTENT WITH PULMONARY DISEASE INFERIOR MYOCARDIAL INFARCTION , PROBABLY OLD [40+ ms Q WAVE AND/OR ST/T ABNORMALITY IN II/aVF] Compared to ECG 06/14/2025 19:41:54 Ventricular premature complex(es) now present Low QRS voltage now present Myocardial infarct finding still present Electronically Signed On 06-15-2025 13:04:25 BREAKFAST ATTENDANT by Pravin Greenberg M.D. [email or web address]
[2025-06-14 23:39] LABS: INR 1.14 (0.8-1.2); Partial Thromboplastin Time 34.0 SECONDS (23.9-36.7); Prothrombin Time 15.50 SECONDS (12.1-14.9)
[2025-06-14 23:43] LABS: Troponin 5 2HR 47.34 ng/L (0-15)
[2025-06-14 23:44] LABS: Troponin 5 2HR Delta -1.66 ABS# (0-10)
[2025-06-15] MEDS: heparin drip 25,000 UNIT/500 ML PREMIX 29.59 UNIT IV (00:15)
[2025-06-15 00:24] VITALS: BP 138/69; O2SAT 93
[2025-06-15 01:02] VITALS: BP 138/69; O2SAT 93
[2025-06-15 01:26] VITALS: BP 134/73; PULSE 63; O2SAT 92
[2025-06-15 03:25] LABS: Troponin 5 6HR 47.59 ng/L (0-15)
[2025-06-15 03:32] VITALS: BP 127/68; O2SAT 93
--- NOTE | 2025-06-15 03:33 | ECG_ITS ---
[facility]15 Pat Name: Howard Herrera Department: Room: Gender: Male [employer]: : 1955 Requested By: Marc Bello Order Number: [id number] Tessie MD: Pravin Greenberg M.D. Measurements Intervals [place] Rate: 61 P: 37 [place]: 183 QRS: -11 QRSD: 86 T: 30 QT: 348 QTc: 353 Interpretive Statements SINUS RHYTHM LOW QRS VOLTAGE IN PRECORDIAL LEADS [QRS DEFLECTION < 1.0 mV IN CHEST LEADS] Compared to ECG 06/14/2025 23:17:28 Ventricular premature complex(es) no longer present Myocardial infarct finding no longer present Heavy baseline artifacts; Need to repeat the study. Electronically Signed On 06-15-2025 13:04:19 [employer] by Pravin Greenberg M.[email or web address]
[2025-06-15 03:35] LABS: Troponin 5 6HR Delta -1.41 ng/L (0-12)
[2025-06-15 03:53] VITALS: BP 107/57; PULSE 66; O2SAT 96
== END 2025-06-15 04:04 | disposition short-term general hospital (02) ==
PROVIDERS: Emergency Provider Physician Assistant; PCP Family Medicine
DX: I26.94 Multiple subsegmental thrombotic pulmonary emboli without acute cor pulmonale (principal); E11.9 Type 2 diabetes mellitus without complications; I10 Essential (primary) hypertension; Z87.891 Personal history of nicotine dependence; Z98.890 Other specified postprocedural states
CPT/HCPCS: 36415; 71045; 71275; 80053; 84484; 85025; 85378; 85610; 85730; 93005; 96374; 99285; 99291; J1644

== ENCOUNTER → 2025-06-26 09:07 | Outpatient (BNVA) | payer MEDICARE, SELFPAY | PROVIDERS: PCP Family Medicine; Visit Provider Family Medicine | DX: I25.10 Atherosclerotic heart disease of native coronary artery without angina pectoris (principal); E11.40 Type 2 diabetes mellitus with diabetic neuropathy, unspecified; I10 Essential (primary) hypertension | CPT/HCPCS: 80053; 85025 ==

== ENCOUNTER → 2025-06-27 11:06 | Outpatient (BNVA) | payer MEDICARE, SELFPAY | PROVIDERS: PCP Family Medicine; Visit Provider Family Medicine | DX: I26.99 Other pulmonary embolism without acute cor pulmonale (principal); R91.8 Other nonspecific abnormal finding of lung field; J90 Pleural effusion, not elsewhere classified | CPT/HCPCS: 71046 ==